=== PATIENT | female | born 1960 | race American Indian/Alaskan Native ===

== ENCOUNTER 2019-12-21 00:01 | Emergency (ER) | payer SELFPAY ==
[2019-12-21] MEDS ORDERED: TETRACAINE 0.5% OPHTH SOLN 4ML ONE (00:43)
[2019-12-21] MEDS ORDERED: TETRACAINE 0.5% OPHTH SOLN 4ML OU ONE (00:50)
[2019-12-21] MEDS ORDERED: ACETAMINOPHEN 325 MG TAB ONE (01:09)
[2019-12-21] MEDS ORDERED: ACETAMINOPHEN 325 MG TAB PO ONE (01:20)
[2019-12-21] MEDS ORDERED: oxyCODONE /ACETAMINOPHEN 5-325MG TAB PO ONE (02:12)
[2019-12-21] MEDS ORDERED: ONDANSETRON 4 MG ODT TAB PO ONE (02:13)
[2019-12-21] MEDS ORDERED: FLUORESCEIN 1 MG STRIP OP ONE (02:36)
--- NOTE | 2019-12-21 03:30 | Emergency Department Report ---
ED Eye Problem HPI - General Chief complaint: Eye Problems Stated complaint: EYE PAIN Time Seen by Provider: 12/21/19 02:20 Source: patient, family Mode of arrival: Ambulatory Limitations: No Limitations - History of Present Illness Initial comments: Angolan interpretation by patient's daughter Patient is a 59-year-old female presents emergency room with complaints of bilateral eye pain that began just prior to arrival. Patient states that she was trying to put her contacts in and believes she accidentally scratched her eyes with her fingernails and rubbed her eyes with a paper towel which felt also like she scratched her eyes. She states that she has a foreign body sensation but does not did not get anything in the eyes that she is aware of. She has associated blurry vision. She does not have the contacts in currently, she was able to remove them. She has multiple medical problems including diabetes, mitral valve replacement, hypertension, migraines. No allergies to medications. - Related Data Previous Rx's Medication Instructions Recorded Last Taken Type Erythromycin [Erythromycin Ophth 1 applic OP QID 10 Days #1 tube 12/21/19 Unknown Rx Oint] traMADoL [Ultram 50 MG tab] 50 mg PO Q6HR PRN #12 tablet 12/21/19 Unknown Rx Allergies Allergy/AdvReac Type Severity Reaction Status Date / Time No Known Allergies Allergy Unverified 12/21/19 00:26 ED Review of Systems ROS: Stated complaint: EYE PAIN Other details as noted in HPI Comment: All other systems reviewed and negative ED Past Medical Hx - Past Medical History Previous Medical History?: No - Surgical History Past Surgical History?: No - Social History Smoking Status: Never Smoker Substance Use Type: None - Medications Home Medications: Home Medications Medication Instructions Recorded Confirmed Last Taken Type Erythromycin [Erythromycin Ophth 1 applic OP QID 10 Days #1 tube 12/21/19 Unknown Rx Oint] traMADoL [Ultram 50 MG tab] 50 mg PO Q6HR PRN #12 tablet 12/21/19 Unknown Rx ED Physical Exam - General Limitations: No Limitations General appearance: alert, other (tearful secondary to eye pain) - Head Head exam: Present: atraumatic, normocephalic - Eye Eye exam: Present: PERRL, EOMI, other (fluroscein stain with li lamp shows a large corneal abrasion in each eye, it is approximately 0.5 cm, no obvious foreign body bilaterally, pupil is normal shape, eyes irrigated with saline, the stain is still inside the area of uptake even after washing the eyes out). Absent: periorbital swelling, periorbital tenderness - Neurological Exam Neurological exam: Present: alert, oriented X3 - Psychiatric Psychiatric exam: Present: normal affect, normal mood - Skin Skin exam: Present: warm, dry ED Course Vital Signs 12/21/19 12/21/19 12/21/19 00:24 01:30 03:40 Temperature 98.0 F Pulse Rate 98 H 82 Respiratory 18 18 18 Rate Blood Pressure 130/101 O2 Sat by Pulse 97 100 Oximetry ED Medical Decision Making - Medical Decision Making Angolan interpretation by patient's daughter Patient is a 59-year-old female presents emergency room with complaints of bilateral eye pain that began just prior to arrival. Patient states that she was trying to put her contacts in and believes she accidentally scratched her eyes with her fingernails and rubbed her eyes with a paper towel which felt also like she scratched her eyes. She states that she has a foreign body sensation but does not did not get anything in the eyes that she is aware of. She has associated blurry vision. She does not have the contacts in currently, she was able to remove them. She has multiple medical problems including diabetes, mitral valve replacement, hypertension, migraines. No allergies to medications. vss. on exam: fluroscein stain with li lamp shows a large corneal abrasion in each eye, it is approximately 0.5 cm, no obvious foreign body bilaterally, pupil is normal shape, eyes irrigated with saline, the stain is still inside the area of uptake even after washing the eyes out. Discussed the patient presentation and all exam findings with Dr. Do, ER attending who states could be related to epithelial injury, advised to write prescription for antibiotics and to have patient follow-up with [facility] maintenance in the next 24 hours. Patient given prescription for erythromycin ophthalmic ointment and tramadol. Advised patient Please use medication as prescribed. Please wash hands before placing medication. Do not put your contacts in. Do not drive or operate heavy machinery while taking pain medication. Please follow-up with the carpenter helper maintenance within the next 24 hours, you need to see them tomorrow morning first thing. It is very important that you follow-up. Return to emergency room for new or worsening symptoms. Critical care attestation.: If time is entered above; I have spent that time in minutes in the direct care of this critically ill patient, excluding procedure time. ED Disposition Clinical Impression: Corneal abrasion of both eyes Qualifiers: Encounter type: initial encounter Qualified Code(s): S05.01XA - Injury of conjunctiva and corneal abrasion without foreign body, right eye, initial encounter Disposition: DC-01 TO HOME OR SELFCARE Is pt being admited?: No Does the pt Need Aspirin: No Condition: Stable Instructions: Corneal Abrasion (ED) Additional Instructions: Please use medication as prescribed. Please wash hands before placing medication. Do not put your contacts in. Do not drive or operate heavy machinery while taking pain medication. Please follow-up with the carpenter helper maintenance within the next 24 hours, you need to see them tomorrow morning first thing. It is very important that you follow-up. Return to emergency room for new or worsening symptoms. Utilice los medicamentos segn lo prescrito. Lvese las srinivasa antes de colocar el medicamento. No se ponga los lentes de contacto. No conduzca ni maneje maquinaria pesada mientras est tomando analgsicos. Brooks un seguimiento con el oftalmlogo dentro de las prximas 24 horas, debe verlo maana por la maana a primera hora. Es muy importante que brooks un seguimiento. Regrese a la nagi de emergencias por sntomas nuevos o que empeoran. Prescriptions: Erythromycin [Erythromycin Ophth Oint] 1 applic OP QID 10 Days #1 tube traMADoL [Ultram 50 MG tab] 50 mg PO Q6HR PRN #12 tablet PRN Reason: Pain , Severe (7-10) Referrals: HERNAN GEORGE MD [Staff Physician] - 24 Hours [facility] [Provider Group] - 24 Hours Forms: Accompanied Note Time of Disposition: 03:30 Print Language: TELUGU
[2019-12-21 03:39] VITALS: BP 130/101
== END 2019-12-21 03:40 | disposition home or self-care (01) ==
LOC: ED 00:01
DX: S05.01XA Injury of conjunctiva and corneal abrasion without foreign body, right eye, initial encounter (principal); S05.02XA Injury of conjunctiva and corneal abrasion without foreign body, left eye, initial encounter; Z79.899 Other long term (current) drug therapy; X58.XXXA Exposure to other specified factors, initial encounter; Y93.89 Activity, other specified; Y92.89 Other specified places as the place of occurrence of the external cause; Y99.8 Other external cause status
CPT/HCPCS: Q0162